=== PATIENT | male | born 1970 | race Caucasian/White ===

== ENCOUNTER 2018-05-03 17:40 | Observation (INO) | payer OTHER ==
--- NOTE | 2018-05-03 18:00 | PDOC ---
Rapid Medical Evaluation Chief Complaint: Blood Sugar Problem Time Seen by Provider: 05/03/18 17:55 Medical Evaluation: 05/03/18 17:58 I have performed a brief in-person evaluation of this patient. The patient presents with a chief complaint of: sent from clinic for BS of 502- Pertinent physical exam findings: well, denies pain, fevers, nausea, dizzy... states feels well I have ordered the following: CBC, CMP, Acetone, UA The patient will proceed to the ED for further evaluation.
[2018-05-03 18:01] VITALS: BMI 20.5
[2018-05-03 18:32] LABS: URINE APPEARANCE CLEAR; URINE BILIRUBIN NEGATIVE (<2.0 mg/dL); URINE COLOR STRAW; URINE GLUCOSE (UA) 3+ (NEGATIVE); URINE KETONE 1+ (NEGATIVE); URINE LEUK ESTERASE NEGATIVE (NEGATIVE); URINE NITRITE NEGATIVE (NEGATIVE); URINE PROTEIN NEGATIVE (NEGATIVE); URINE UROBILINOGEN NEGATIVE mg/dL (0.2-1.0)
[2018-05-03 19:03] LABS: BASO % 0.5 % (0-2.0); EOS % 0.6 % (0-4.5); HEMATOCRIT 46.2 % (35.4-49); HEMOGLOBIN 15.2 GM/dL (11.7-16.9); LYMPH % 22.9 % (8-40); MCH 31.5 pg (25.7-33.7); MCHC 32.9 g/dl (32.0-35.9); MEAN CELL VOLUME 95.7 fl (80-96); MONO % 8.7 % (3.8-10.2); NEUT % 67.3 % (42.8-82.8); PLATELET COUNT 185 K/MM3 (134-434); RBC 4.82 M/mm3 (4.00-5.60); RDW 14.5 % (11.9-15.9); WHITE BLOOD COUNT 6.8 K/mm3 (4.0-10.0)
--- NOTE | 2018-05-03 19:27 | PDOC ---
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 Received 8 units of insulin at the clinic around 10 am and told to go to the hospital for evaluation. Of note, Pt does not have PCP and has not taken his prescribed metformin for over 2 years but has been taking metformin for the last 2 months. Pt has had 2 appointments with [facility] eye clinic for 2 months of blurry vision and left eye watery drainage which has been improving with eye drops. Pt admits to increased frequency of urination at night but all other ROS including denies any N/V/F/C, pain or burning on urination, changes in bowel habits abdominal pain, CP or SOB Past History - Past Medical History Allergies/Adverse Reactions: Allergies Allergy/AdvReac Type Severity Reaction Status Date / Time No Known Allergies Allergy Verified 05/03/18 17:58 Home Medications: Ambulatory Orders Erythromycin 0.5% Eye Ointment [Erythromycin 0.5% Eye Ointment -] 1 applic BID 05/03/18 Propylene Glycol/Peg 400/Pf [Systane Ultra 0.4-0.3% Eye Drp] 1 each OP DAILY metFORMIN HCL [Metformin HCl] 1,000 mg PO BID 05/03/18 - Suicide/Smoking/Psychosocial Hx Smoking History: Current every day smoker Information on smoking cessation initiated: No Review of Systems - Review of Systems Constitutional: No: Chills, Fever HEENTM: Yes: Blurred Vision (2 months) Respiratory: No: Shortness of Breath Cardiac (ROS): No: Chest Pain ABD/GI: No: Constipated, Diarrhea, Nausea, Vomiting : Yes: Frequency (for multiple years). No: Burning, Dysuria Musculoskeletal: No: Back Pain Neurological: No: Headache, Numbness, Paresthesia, Weakness *Physical Exam - Vital Signs Last Vital Signs Temp Pulse Resp BP Pulse Ox 97.9 F 106 H 18 172/107 H 05/03/18 18:00 05/03/18 18:00 05/03/18 18:00 05/03/18 18:00 - Physical Exam General Appearance: Yes: Nourished, Appropriately Dressed. No: Apparent Distress HEENT: positive: EOMI Respiratory/Chest: positive: Lungs Clear, Normal Breath Sounds. negative: Stridor, Wheezing Cardiovascular: positive: Regular Rhythm, Regular Rate (rechecked 94), S1, S2. negative: Edema, JVD, Murmur Vascular Pulses: Dorsalis-Pedis (R): 4+, Doralis-Pedis (L): 4+ Gastrointestinal/Abdominal: positive: Flat, Soft. negative: Pulsatile Mass, Distended, Guarding, Rebound, Tenderness Extremity: positive: Normal Capillary Refill Integumentary: positive: Normal Color, Dry, Warm Neurologic: positive: Fully Oriented, Alert, Normal Mood/Affect, Normal Response , Motor Strength 11/05 ED Treatment Course - LABORATORY CBC & Chemistry Diagram: 05/03/18 18:50 05/03/18 18:50 - ADDITIONAL ORDERS Additional order review: Laboratory Results 05/03/18 18:00 Urine Color Straw Urine Appearance Clear Urine pH 5.0 Ur Specific [place] 1.020 Urine Protein Negative Urine Glucose (UA) 3+ H Urine Ketones 1+ H Urine Blood Negative Urine Nitrite Negative Urine Bilirubin Negative Urine Urobilinogen Negative Ur Leukocyte Esterase Negative 05/03/18 18:50 RBC 4.82 MCV 95.7 MCHC 32.9 RDW 14.5 MPV 10.0 Neutrophils % 67.3 Lymphocytes % 22.9 Monocytes % 8.7 Eosinophils % 0.6 Basophils % 0.5 Medical Decision Making - Medical Decision Making 47 yo male pmh DM with BS noted in the 500s and received 8 units of insulin today. Also, BP elevated. Patient has no complaints 05/03/18 19:48 repeat vitals: 123/72 BP 94 BPM 100% RA BS 389 Acetone positive 2+ Repeat after 2L fluid 1+ positive Will admit to observation *DC/Admit/Observation/Transfer Diagnosis at time of Disposition: Uncontrolled diabetes mellitus Qualifiers: Diabetes mellitus type: type 2 Glycemic state: with hyperglycemia Qualified Code(s): E11.65 - Type 2 diabetes mellitus with hyperglycemia - Discharge Dispostion Condition at time of disposition: Stable Decision to Admit order: Yes - Referrals - Patient Instructions - Post Discharge Activity
[2018-05-03] MEDS ORDERED: SODIUM CHLORIDE 0.9% 1000 ML INFUS.BAG IV ONE (19:39)
--- NOTE | 2018-05-03 19:39 | PDOC ---
Attending Attestation - HPI HPI: 05/03/18 21:26 The patient is a 47 year old male, with a significant past medical history of diabetes and cataracts (recent surgery), who presents to the emergency department with, elevated blood sugar. As per patient, he has not been compliant with medications over the past 2 years and has only been taking his medication (Metformin) over the past 2 months. He was seen at his eye clinic and when his blood glucose level was in the 500s and he was administered insulin. Patient was seen at the clinic on [address] and was advised to report to the ED for further evaluation. He denies any recent fevers, chills, headache or dizziness. He denies any recent nausea, vomit, diarrhea or constipation. He denies any recent chest pain or shortness of breath. He denies any recent dysuria, frequency, urgency or hematuria. Allergies: NKDA - Physicial Exam PE: 05/03/18 21:31 +Constitutional: Pale. Awake, alert, oriented. No acute distress. Head: Normocephalic. Atraumatic +Eyes: Mildly injected sclera. Recent cataract surgery. ENT: Mucous membranes are moist and intact. Posterior pharynx without exudates or erythema. Uvula midline. Neck: Supple. Full ROM. No lymphadenopathy. +Cardiovascular: Tachycardic. S1, S2 regular. Distal pulses are 2+ and symmetric. Pulmonary/Chest: No evidence of respiratory distress. Clear to auscultation bilaterally No wheezing, rales or rhonchi. Abdominal: Soft and non-distended. There is no tenderness. No rebound, guarding or rigidity. No organomegaly. No palpable masses. Good bowel sounds. Back: No CVA tenderness. Musculoskeletal: No edema. No cyanosis. No clubbing. Full range of motion in all extremities. No calf tenderness. Radial/pedal pulses are intact and 2+ bilaterally Skin: Skin is warm and dry. No petechiae. No purpura. Neurological: Alert and oriented to person, place, and time. Cranial nerves II -XII are grossly intact. Normal speech. Strength is grossly symmetric. No sensory deficits. Psychiatric: Good eye contact. Normal interaction, affect and behavior. <Ivis Smith - Last Filed: 05/03/18 21:26> - Resident Resident Name: Jorge Amor - ED Attending Attestation I have performed the following: I have examined & evaluated the patient, The case was reviewed & discussed with the resident, I agree w/resident's findings & plan, Exceptions are as noted - Medical Decision Making 05/03/18 19:38 I, Dr. Nakia Brown, DO, attest that this document has been prepared under my direction and personally reviewed by me in its entirety. I further attest, that it accurately reflects all work, treatment, procedures and medical decision -making performed by me. 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 <Ivis Smith - Last Filed: 05/03/18 21:26>
[2018-05-03 19:45] LABS: ALBUMIN 3.9 g/dl (3.4-5.0); ALK PHOS 104 U/L (45-117); ANION GAP 12 MMOL/L (8-16); BILIRUBIN,TOTAL 0.4 mg/dL (0.2-1); BLOOD UREA NITROGEN 12 mg/dL (7-18); CALCIUM 8.8 mg/dL (8.5-10.1); CHLORIDE 96 mmol/L (98-107); CO2 24 mmol/L (21-32); CREATININE 0.6 mg/dL (0.55-1.3); POTASSIUM 4.4 mmol/L (3.5-5.1); SGOT/AST 10 U/L (15-37); SGPT/ALT 28 U/L (13-61); SODIUM 133 mmol/L (136-145); TOT PROT 6.9 g/dl (6.4-8.2)
[2018-05-03 19:46] LABS: GLUCOSE,RANDOM 389 mg/dL (74-106)
[2018-05-03] MEDS ORDERED: SODIUM CHLORIDE 1,000 ML IV STA (20:43)
[2018-05-04] MEDS ORDERED: SODIUM CHLORIDE 0.9% 1000 ML INFUS.BAG IV ONE (00:14)
[2018-05-04] MEDS ORDERED: INSULIN (NOVOLOG) ASPART 100 UNITS/ML 10ML VIAL ONE (00:29)
--- NOTE | 2018-05-04 00:44 | HP ---
CHIEF COMPLAINT: PCP: HISTORY OF PRESENT ILLNESS: ER course was notable for: (1) (2) (3) Recent Travel: PAST MEDICAL HISTORY: PAST SURGICAL HISTORY: Social History: Smoking: Alcohol: Drugs: Family History: Allergies No Known Allergies Allergy (Verified 05/03/18 17:58) HOME MEDICATIONS: Home Medications Medication Instructions Recorded Erythromycin 0.5% Eye Ointment 1 applic BID 05/03/18 [Erythromycin 0.5% Eye Ointment -] Propylene Glycol/Peg 400/Pf 1 each OP DAILY 05/03/18 [Systane Ultra 0.4-0.3% Eye Drp] metFORMIN HCL [Metformin HCl] 1,000 mg PO BID 05/03/18 REVIEW OF SYSTEMS CONSTITUTIONAL: Absent: fever, chills, diaphoresis, generalized weakness, malaise, loss of appetite, weight change HEENT: Absent: rhinorrhea, nasal congestion, throat pain, throat swelling, difficulty swallowing, mouth swelling, ear pain, eye pain, visual changes CARDIOVASCULAR: Absent: chest pain, syncope, palpitations, irregular heart rate, lightheadedness , peripheral edema RESPIRATORY: Absent: cough, shortness of breath, dyspnea with exertion, orthopnea, wheezing, stridor, hemoptysis GASTROINTESTINAL: Absent: abdominal pain, abdominal distension, nausea, vomiting, diarrhea, constipation, melena, hematochezia GENITOURINARY: Absent: dysuria, frequency, urgency, hesitancy, hematuria, flank pain, genital pain MUSCULOSKELETAL: Absent: myalgia, arthralgia, joint swelling, back pain, neck pain SKIN: Absent: rash, itching, pallor HEMATOLOGIC/IMMUNOLOGIC: Absent: easy bleeding, easy bruising, lymphadenopathy, frequent infections ENDOCRINE: Absent: unexplained weight gain, unexplained weight loss, heat intolerance, cold intolerance NEUROLOGIC: Absent: headache, focal weakness or paresthesias, dizziness, unsteady gait, seizure, mental status changes, bladder or bowel incontinence PSYCHIATRIC: Absent: anxiety, depression, suicidal or homicidal ideation, hallucinations. PHYSICAL EXAMINATION Vital Signs - 24 hr 05/03/18 18:00 Temperature 97.9 F Pulse Rate 106 H Respiratory 18 Rate Blood Pressure 172/107 H GENERAL: Awake, alert, and fully oriented, in no acute distress. HEAD: Normal with no signs of trauma. EYES: Pupils equal, round and reactive to light, extraocular movements intact, sclera anicteric, conjunctiva clear. No lid lag. EARS, NOSE, THROAT: Ears normal, nares patent, oropharynx clear without exudates. Moist mucous membranes. NECK: Normal range of motion, supple without lymphadenopathy, JVD, or masses. LUNGS: Breath sounds equal, clear to auscultation bilaterally. No wheezes, and no crackles. No accessory muscle use. HEART: Regular rate and rhythm, normal S1 and S2 without murmur, rub or gallop. ABDOMEN: Soft, nontender, not distended, normoactive bowel sounds, no guarding, no rebound, no masses. No hepatomegaly or splenomegaly. MUSCULOSKELETAL: Normal range of motion at all joints. No bony deformities or tenderness. No CVA tenderness. UPPER EXTREMITIES: 2+ pulses, warm, well-perfused. No cyanosis. No clubbing. No peripheral edema. LOWER EXTREMITIES: 2+ pulses, warm, well-perfused. No calf tenderness. No peripheral edema. NEUROLOGICAL: Cranial nerves II-XII intact. Normal speech. Normal gait. PSYCHIATRIC: Cooperative. Good eye contact. Appropriate mood and affect. SKIN: Warm, dry, normal turgor, no rashes or lesions noted, normal capillary refill. Laboratory Results - last 24 hr 05/03/18 05/03/18 05/03/18 18:00 18:50 18:50 WBC 6.8 RBC 4.82 Hgb 15.2 Hct 46.2 MCV 95.7 MCH 31.5 MCHC 32.9 RDW 14.5 Plt Count 185 MPV 10.0 Absolute Neuts (auto) 4.6 Neutrophils % 67.3 Lymphocytes % 22.9 Monocytes % 8.7 Eosinophils % 0.6 Basophils % 0.5 Nucleated RBC % 0 Sodium 133 L Potassium 4.4 Chloride 96 L Carbon Dioxide 24 Anion Gap 12 BUN 12 Creatinine 0.6 Creat Clearance w eGFR > 60 POC Glucometer Random Glucose 389 H* Calcium 8.8 Total Bilirubin 0.4 AST 10 L ALT 28 Alkaline Phosphatase 104 Total Protein 6.9 Albumin 3.9 Urine Color Straw Urine Appearance Clear Urine pH 5.0 Ur Specific [place] 1.020 Urine Protein Negative Urine Glucose (UA) 3+ H Urine Ketones 1+ H Urine Blood Negative Urine Nitrite Negative Urine Bilirubin Negative Urine Urobilinogen Negative Ur Leukocyte Esterase Negative Acetone, Qual 05/03/18 05/03/18 05/04/18 18:50 22:55 00:16 WBC RBC Hgb Hct MCV MCH MCHC RDW Plt Count MPV Absolute Neuts (auto) Neutrophils % Lymphocytes % Monocytes % Eosinophils % Basophils % Nucleated RBC % Sodium Potassium Chloride Carbon Dioxide Anion Gap BUN Creatinine Creat Clearance w eGFR POC Glucometer [phone] Random Glucose Calcium Total Bilirubin AST ALT Alkaline Phosphatase Total Protein Albumin Urine Color Urine Appearance Urine pH Ur Specific [place] Urine Protein Urine Glucose (UA) Urine Ketones Urine Blood Urine Nitrite Urine Bilirubin Urine Urobilinogen Ur Leukocyte Esterase Acetone, Qual Positive moderate 2+ Positive small 1+ ASSESSMENT/PLAN:
[2018-05-04] MEDS ORDERED: amLODIPine BESYLATE 5 MG TABLET (FP) PO ONE (01:32)
--- NOTE | 2018-05-04 01:44 | HP ---
CHIEF COMPLAINT: Elevated blood glucose PCP: HISTORY OF PRESENT ILLNESS: Patient is a 47 year old male with history of poorly controlled Diabetes Mellitus presents from [facility] with complaint of elevated blood glucose. Patient states he took his metformin 1000mg yesterday, however admits periods of time not taking Metformin, and is reluctant to discuss the gaps in his medication compliance. He has never taken insulin. Admits occasionally checking his fingerstick blood sugar in middle of the day with numbers ranging in 300-400. 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 He has not seen telemetry nurse in the past. Currently he denies falls, loss of consciousness, fevers, chills, shortness of breath, cough, chest pain, palpitations, abdominal pain, nausea, vomiting, diarrhea, constipation. ER course was notable for: (1) Blood glucose 369 (2) 3L IV normal saline PAST MEDICAL HISTORY: diabetes mellitus, hypertension PAST SURGICAL HISTORY: denies Social History: Smoking: admits smoking about half pack per day for past 20 years Alcohol: admits 2-3 beers daily Drugs: denies Family History: Mother: HTN Father: DM Allergies NKDA No Known Allergies Allergy (Verified 05/03/18 17:58) HOME MEDICATIONS: Home Medications Medication Instructions Recorded Erythromycin 0.5% Eye Ointment 1 applic BID 05/03/18 [Erythromycin 0.5% Eye Ointment -] Propylene Glycol/Peg 400/Pf 1 each OP DAILY 05/03/18 [Systane Ultra 0.4-0.3% Eye Drp] metFORMIN HCL [Metformin HCl] 1,000 mg PO BID 05/03/18 REVIEW OF SYSTEMS As per HPI PHYSICAL EXAMINATION Vital Signs - 24 hr 05/03/18 05/03/18 18:00 23:58 Temperature 97.9 F 98.5 F Pulse Rate 106 H Pulse Rate [ 112 H Apical] Respiratory 18 18 Rate Blood Pressure 172/107 H Blood Pressure 142/88 [Left Arm] O2 Sat by Pulse 99 Oximetry (%) GENERAL: Awake, alert, and fully oriented, in no acute distress. HEAD: Normocephalic, atraumatic. EYES: Pupils equal, round and reactive to light, extraocular movements intact without nystagmus b/l. Sclera anicteric. Left eye conjunctival injection noted. EARS, NOSE, THROAT: Oropharynx clear without exudates, erythema, or lesions. Moist mucous membranes. NECK: Normal range of motion, supple without lymphadenopathy, or thyromegaly. LUNGS: Breath sounds equal, clear to auscultation bilaterally. No wheezes, and no crackles. No accessory muscle use. HEART: Regular rate and rhythm, normal S1 and S2 without murmur, rub or gallop. ABDOMEN: Soft, nontender, not distended, normoactive bowel sounds, no guarding, no rebound, no masses. No hepatomegaly or splenomegaly. MUSCULOSKELETAL: Normal range of motion at all joints. No bony deformities or tenderness. Strength 5/5 b/l upper and lower extremities. UPPER EXTREMITIES: 2+ radial pulses b/l. warm, well-perfused. LOWER EXTREMITIES: 2+ dorsalis pedis pulses b/l, warm, well-perfused. No calf tenderness. No peripheral edema. NEUROLOGICAL: Cranial nerves II-XII intact. Normal speech. Normal gait. Sensation intact b/l upper and lower extremities. PSYCHIATRIC: Cooperative. Good eye contact. Appropriate mood and affect upon my encounter today. SKIN: Warm, dry. Cracked dry skin between toes without open wounds or lesions. Laboratory Results - last 24 hr 05/03/18 05/03/18 05/03/18 18:00 18:50 18:50 WBC 6.8 RBC 4.82 Hgb 15.2 Hct 46.2 MCV 95.7 MCH 31.5 MCHC 32.9 RDW 14.5 Plt Count 185 MPV 10.0 Absolute Neuts (auto) 4.6 Neutrophils % 67.3 Lymphocytes % 22.9 Monocytes % 8.7 Eosinophils % 0.6 Basophils % 0.5 Nucleated RBC % 0 Sodium 133 L Potassium 4.4 Chloride 96 L Carbon Dioxide 24 Anion Gap 12 BUN 12 Creatinine 0.6 Creat Clearance w eGFR > 60 POC Glucometer Random Glucose 389 H* Calcium 8.8 Total Bilirubin 0.4 AST 10 L ALT 28 Alkaline Phosphatase 104 Total Protein 6.9 Albumin 3.9 Urine Color Straw Urine Appearance Clear Urine pH 5.0 Ur Specific [place] 1.020 Urine Protein Negative Urine Glucose (UA) 3+ H Urine Ketones 1+ H Urine Blood Negative Urine Nitrite Negative Urine Bilirubin Negative Urine Urobilinogen Negative Ur Leukocyte Esterase Negative Acetone, Qual 05/03/18 05/03/18 05/04/18 18:50 22:55 00:16 WBC RBC Hgb Hct MCV MCH MCHC RDW Plt Count MPV Absolute Neuts (auto) Neutrophils % Lymphocytes % Monocytes % Eosinophils % Basophils % Nucleated RBC % Sodium Potassium Chloride Carbon Dioxide Anion Gap BUN Creatinine Creat Clearance w eGFR POC Glucometer [phone] Random Glucose Calcium Total Bilirubin AST ALT Alkaline Phosphatase Total Protein Albumin Urine Color Urine Appearance Urine pH Ur Specific [place] Urine Protein Urine Glucose (UA) Urine Ketones Urine Blood Urine Nitrite Urine Bilirubin Urine Urobilinogen Ur Leukocyte Esterase Acetone, Qual Positive moderate 2+ Positive small 1+ ASSESSMENT/PLAN: Patient is a 47 year old male with history of poorly controlled Diabetes Mellitus presents from [facility] with complaint of elevated blood glucose. Hyperglycemia -Patient received 8 units insulin in clinic prior to arrival at [facility] ED. -Begin Levemir 5 units HS -Insulin sliding scale ACHS -BGM ACHS -F/U lipid panel, A1c, TSH -Discussed importance of daily fingerstick blood glucose monitoring Hypertension -Begin Lisinporil 5mg PO daily -Follow vital signs Hyperlipidemia -Begin atorvastatin 40mg PO daily -F/U lipid panel FEN -No IV fluids. Encourage judicious oral intake -Follow CMP -Diabetic diet Prophylaxis -Heparin 5000u subq TID Disposition -Observe in medical surgical floor Visit type - Emergency Visit Emergency Visit: Yes ED Registration Date: 05/04/18 Care time: The patient presented to the Emergency Department on the above date and was hospitalized for further evaluation of their emergent condition. - New Patient This patient is new to me today: Yes Date on this admission: 05/04/18 - Critical Care Critical Care patient: No
[2018-05-04] MEDS ORDERED: amLODIPine BESYLATE 5 MG TABLET (FP) ONE (02:22)
[2018-05-04] MEDS ORDERED: INSULIN (LEVEMIR) 100 UNITS/ML UNITS SQ STA (03:00)
--- NOTE | 2018-05-04 03:00 | PN ---
Teaching Attending Note Name of Resident: Verna Camacho ATTENDING PHYSICIAN STATEMENT I saw and evaluated the patient. I reviewed the resident's note and discussed the case with the resident. I agree with the resident's findings and plan as documented. SUBJECTIVE: Seen and examined with resident; please refer to their note for further information. In summary this is a 47 y/o gentleman with a h/o DM on metformin at home; occasionally forgets to take it. He is insulin naieve. He was at his eye doctor's office when his sugar was checked and found to be >500. He was given insulin but was still very high >350 so he came to the hospital on direction from his MD. He is doing well with no acute complaints. Sugar here still in high 300-range. He will likely need to be started on insulin and monitored on the medicine service overnight. As stated, he feels well. He checks sugar 1x/day around noon and is usually in the 300-400 range. PMH and PSH per chart FH asked and noncontributory Denies EtOH and drug abuse OBJECTIVE: VSS, reviewed labs NAD, AAO, resting in chair in holding area RRR s1/2 no mgr No rashes or skin breakdown Lung exam nonfocal with sym exp NT ND +BS CN2-12 wnl, no fnd ASSESSMENT AND PLAN: Mr. Mcknight is a 47 y/o HM with a history of uncontrolled DM presenting for glucose >500 at his optho office. No anion gap/DKA. He will need him DM regimine optimized and started on long acting insulin 1) Diabetes Mellitus II -Evidenced by PMH and his fsg. Check A1c -As he is consistently above 300 at home, given his degree of uncontrolled DM will likely be requiring insulin. Starting him on long acting (levemir here, but can convert to lantus as OP) 5 units qHS and informing him he needs to change his fsg check to qAM at the very minimum. He is to continue his metformin and followup closely with PCP -Check his lipids, TSH. Calculate ASCVD risk and see if he would benefit from statin usage as outpatient; start him on appropriate intensity statin, then. -Will need podiatry, continued optho followups, urine microalbumin/Cr ratio done as outpatient. 2) +Acetone in urine -Not in DKA (no AG+, no acidosis, asx); likely from prolonged severe hyperglycemia -Recheck as outpatient. 3) HTN, uncontrolled -Hypertensive to 170s on admission; no documented meds -Start him on Lisinopril 5mg PO QD and titrate up as needed. If persistently high on this would be reasonable to tirate up and consider second agent given the degree of his lack of control. Would consider amlodipine for this second agent. FENA -Hydrated in the ER, can do PO now -monitor/replace PRN -Diabetic Diet -As tolerated Full Code, anticipate DC less than 24 hrs
[2018-05-04] MEDS ORDERED: HEPARIN NA (PORCINE) 5,000 UNITS/ML 1ML VIAL SQ SCH (06:00)
[2018-05-04] MEDS ORDERED: HEPARIN NA (PORCINE) 5,000 UNITS/ML 1ML VIAL ONE (06:28)
[2018-05-04 06:32] LABS: HEMATOCRIT 42.9 % (35.4-49); HEMOGLOBIN 13.9 GM/dL (11.7-16.9); MCHC 32.4 g/dl (32.0-35.9); MEAN CELL VOLUME 95.7 fl (80-96); MEAN PLT VOLUME 9.9 fl (7.5-11.1); PLATELET COUNT 168 K/MM3 (134-434); RBC 4.48 M/mm3 (4.00-5.60); RDW 14.1 % (11.9-15.9); WHITE BLOOD COUNT 6.4 K/mm3 (4.0-10.0)
[2018-05-04 06:48] VITALS: BP 112/82; PULSE 89; TEMP 98.2
[2018-05-04] MEDS ORDERED: INSULIN SLIDING SCALE (NOVOLOG) 1 VIAL SQ SCH (07:00)
[2018-05-04 07:24] LABS: CHOLESTEROL 153 mg/dL (50-200); HDL CHOLESTEROL 57 mg/dL (40-60); TRIGLYCERIDES 104 mg/dL (0-150)
[2018-05-04 07:33] LABS: ALBUMIN 3.3 g/dl (3.4-5.0); ALK PHOS 85 U/L (45-117); ANION GAP 9 MMOL/L (8-16); BILIRUBIN,TOTAL 0.5 mg/dL (0.2-1); BLOOD UREA NITROGEN 9 mg/dL (7-18); CHLORIDE 106 mmol/L (98-107); CO2 22 mmol/L (21-32); CREATININE 0.3 mg/dL (0.55-1.3); GLUCOSE,RANDOM 97 mg/dL (74-106); MAGNESIUM 1.9 mg/dL (1.8-2.4); PHOSPHOROUS 2.5 mg/dL (2.5-4.9); POTASSIUM 3.7 mmol/L (3.5-5.1); SGOT/AST 12 U/L (15-37); SGPT/ALT 24 U/L (13-61); SODIUM 137 mmol/L (136-145)
[2018-05-04] MEDS ORDERED: LISINOPRIL 5 MG TABLET (FP) PO SCH (10:00)
--- NOTE | 2018-05-04 13:34 | PN ---
Teaching Attending Note Name of Resident: Sagar Hernandez ATTENDING PHYSICIAN STATEMENT I reviewed the resident's note and discussed the case with the resident. I agree with the resident's findings and plan as documented. SUBJECTIVE:pt signed out AMA prior to my ability to evaluate and psychosocial rehabilitation counselor the patient. was counseled by residents. scripts were sent to pharmacy.
--- NOTE | 2018-05-04 14:48 | EKG ---
Test Reason : Blood Pressure : / mmHG Vent. Rate : 094 BPM Atrial Rate : 094 BPM P-R Int : 142 ms QRS Dur : 084 ms QT Int : 360 ms P-R-T Axes : 059 097 066 degrees QTc Int : 450 ms NORMAL SINUS RHYTHM RIGHTWARD AXIS BORDERLINE ECG NO PREVIOUS ECGS AVAILABLE Confirmed by MARIA JETER, LIAM ([id number]) on 05/04/2018 2:48:41 PM Referred By: Confirmed By:LIAM SIFUENTES MD
--- NOTE | 2018-05-04 17:33 | DS ---
Physical Exam: SUBJECTIVE: Signed out Against Medical Advice. OBJECTIVE: Vital Signs Period Temp Pulse Resp BP Sys/Son Pulse Ox Last 24 Hr 97.9 F-98.5 F 89-112 12-18 112-172/82-107 99-99 PHYSICAL EXAM Pt signed out AMA. Pt left before able to perform physical exam. LABS Laboratory Results - last 24 hr 05/03/18 05/03/18 05/03/18 18:00 18:50 18:50 WBC 6.8 RBC 4.82 Hgb 15.2 Hct 46.2 MCV 95.7 MCH 31.5 MCHC 32.9 RDW 14.5 Plt Count 185 MPV 10.0 Absolute Neuts (auto) 4.6 Neutrophils % 67.3 Lymphocytes % 22.9 Monocytes % 8.7 Eosinophils % 0.6 Basophils % 0.5 Nucleated RBC % 0 Sodium 133 L Potassium 4.4 Chloride 96 L Carbon Dioxide 24 Anion Gap 12 BUN 12 Creatinine 0.6 Creat Clearance w eGFR > 60 POC Glucometer Random Glucose 389 H* Hemoglobin A1c % Calcium 8.8 Phosphorus Magnesium Total Bilirubin 0.4 AST 10 L ALT 28 Alkaline Phosphatase 104 Total Protein 6.9 Albumin 3.9 Triglycerides Cholesterol Total LDL Cholesterol HDL Cholesterol TSH Urine Color Straw Urine Appearance Clear Urine pH 5.0 Ur Specific [place] 1.020 Urine Protein Negative Urine Glucose (UA) 3+ H Urine Ketones 1+ H Urine Blood Negative Urine Nitrite Negative Urine Bilirubin Negative Urine Urobilinogen Negative Ur Leukocyte Esterase Negative Acetone, Qual 05/03/18 05/03/18 05/04/18 18:50 22:55 00:16 WBC RBC Hgb Hct MCV MCH MCHC RDW Plt Count MPV Absolute Neuts (auto) Neutrophils % Lymphocytes % Monocytes % Eosinophils % Basophils % Nucleated RBC % Sodium Potassium Chloride Carbon Dioxide Anion Gap BUN Creatinine Creat Clearance w eGFR POC Glucometer [phone] Random Glucose Hemoglobin A1c % Calcium Phosphorus Magnesium Total Bilirubin AST ALT Alkaline Phosphatase Total Protein Albumin Triglycerides Cholesterol Total LDL Cholesterol HDL Cholesterol TSH Urine Color Urine Appearance Urine pH Ur Specific [place] Urine Protein Urine Glucose (UA) Urine Ketones Urine Blood Urine Nitrite Urine Bilirubin Urine Urobilinogen Ur Leukocyte Esterase Acetone, Qual Positive moderate 2+ Positive small 1+ 05/04/18 05/04/18 05/04/18 04:06 04:30 06:15 WBC 6.4 RBC 4.48 Hgb 13.9 Hct 42.9 MCV 95.7 MCH 31.0 MCHC 32.4 RDW 14.1 Plt Count 168 MPV 9.9 Absolute Neuts (auto) Neutrophils % Lymphocytes % Monocytes % Eosinophils % Basophils % Nucleated RBC % Sodium Potassium Chloride Carbon Dioxide Anion Gap BUN Creatinine Creat Clearance w eGFR POC Glucometer [phone] Random Glucose Hemoglobin A1c % Calcium Phosphorus Magnesium Total Bilirubin AST ALT Alkaline Phosphatase Total Protein Albumin Triglycerides Cholesterol Total LDL Cholesterol HDL Cholesterol TSH Urine Color Urine Appearance Urine pH Ur Specific [place] Urine Protein Urine Glucose (UA) Urine Ketones Urine Blood Urine Nitrite Urine Bilirubin Urine Urobilinogen Ur Leukocyte Esterase Acetone, Qual 05/04/18 05/04/18 05/04/18 06:15 06:15 06:15 WBC RBC Hgb Hct MCV MCH MCHC RDW Plt Count MPV Absolute Neuts (auto) Neutrophils % Lymphocytes % Monocytes % Eosinophils % Basophils % Nucleated RBC % Sodium 137 Potassium 3.7 Chloride 106 Carbon Dioxide 22 Anion Gap 9 BUN 9 Creatinine 0.3 L Creat Clearance w eGFR > 60 POC Glucometer Random Glucose 97 Hemoglobin A1c % 13.7 H Calcium 8.0 L Phosphorus 2.5 Magnesium 1.9 Total Bilirubin 0.5 AST 12 L ALT 24 Alkaline Phosphatase 85 Total Protein 6.0 L Albumin 3.3 L Triglycerides 104 Cholesterol 153 Total LDL Cholesterol 86 HDL Cholesterol 57 TSH 1.87 Urine Color Urine Appearance Urine pH Ur Specific [place] Urine Protein Urine Glucose (UA) Urine Ketones Urine Blood Urine Nitrite Urine Bilirubin Urine Urobilinogen Ur Leukocyte Esterase Acetone, Qual 05/04/18 06:35 WBC RBC Hgb Hct MCV MCH MCHC RDW Plt Count MPV Absolute Neuts (auto) Neutrophils % Lymphocytes % Monocytes % Eosinophils % Basophils % Nucleated RBC % Sodium Potassium Chloride Carbon Dioxide Anion Gap BUN Creatinine Creat Clearance w eGFR POC Glucometer [phone] Random Glucose Hemoglobin A1c % Calcium Phosphorus Magnesium Total Bilirubin AST ALT Alkaline Phosphatase Total Protein Albumin Triglycerides Cholesterol Total LDL Cholesterol HDL Cholesterol TSH Urine Color Urine Appearance Urine pH Ur Specific [place] Urine Protein Urine Glucose (UA) Urine Ketones Urine Blood Urine Nitrite Urine Bilirubin Urine Urobilinogen Ur Leukocyte Esterase Acetone, Qual HOSPITAL COURSE: Date of Admission:05/04/18 Pt was referred to our emergency department yesterday, 05/03/18, after receiving a BGM of >500 at an eye clinic earlier that day. Pt's BGM in ED was 389. Pt given 5 U SQ Insulin. Repeat BGM was 97. Pt endorsed that he received 8 Units of insulin at the eye clinic before he came to our ED. While in ED, pt' s acetone was positive 2+. Risks of signing out AMA was explained to pt by hospitalist teaching team. Pt signed out AMA. Date of Discharge: 05/04/18 Minutes to complete discharge: 35 Discharge Summary Reason For Visit: UNCONTROLLED DIABETES MELLITUS Condition: Stable - Instructions Diet, Activity, Other Instructions: You were seen in the ED today for elevated blood glucose. Levemir 5 units was prescribed to you. Please follow up with your PCP. If you experience symptoms of chest pain, sob, or weakness come to emergency room immediately. Disposition: AGAINST MEDICAL ADVICE - Home Medications Comprehensive Discharge Medication List: Ambulatory Orders Erythromycin 0.5% Eye Ointment [Erythromycin 0.5% Eye Ointment -] 1 applic BID 05/03/18 Propylene Glycol/Peg 400/Pf [Systane Ultra 0.4-0.3% Eye Drp] 1 each OP DAILY metFORMIN HCL [Metformin HCl] 1,000 mg PO BID 05/03/18 Insulin Detemir [Levemir Flextouch] 5 unit SQ HS #1 insuln.pen 05/04/18 Miscellaneous Medical Supply [Glucometer Test Strips #50] 1 each SQ ASDIR #1 box 05/04/18 Miscellaneous Medical Supply [Lancets] 1 each SQ ASDIR #1 box 05/04/18 This patient is new to me today: Yes Date on this admission: 05/04/18 Emergency Visit: Yes ED Registration Date: 05/04/18 Care time: The patient presented to the Emergency Department on the above date and was hospitalized for further evaluation of their emergent condition. Critical Care patient: No - Discharge Referral Referred to [facility] Med P.C.: No
[2018-05-04] MEDS ORDERED: ATORVASTATIN CA 40 MG TABLET (FP) PO SCH (22:00)
[2018-05-04] MEDS ORDERED: INSULIN (LEVEMIR) 100 UNITS/ML UNITS SQ SCH ×2 (22:00)
== END 2018-05-04 07:37 | disposition left against medical advice (07) ==
LOC: JER 17:40 → JERBED 05-04 00:17 → UNDOADMOB 05-04 01:51 → JERBED 05-04 01:51
PROVIDERS: ADMIT Internal Medicine; ATTEND Internal Medicine
PROC: 3E0337Z Introduction of Electrolytic and Water Balance Substance into Peripheral Vein, Percutaneous Approach (ICD-10-PCS; principal; 2018-05-04)
PROC: 3E013VG Introduction of Insulin into Subcutaneous Tissue, Percutaneous Approach (ICD-10-PCS; 2018-05-04)
PROC: 3E013GC Introduction of Other Therapeutic Substance into Subcutaneous Tissue, Percutaneous Approach (ICD-10-PCS; 2018-05-04)
DX: E11.65 Type 2 diabetes mellitus with hyperglycemia (principal); I10 Essential (primary) hypertension; E78.5 Hyperlipidemia, unspecified; F17.210 Nicotine dependence, cigarettes, uncomplicated; R82.4 Acetonuria; Z79.84 Long term (current) use of oral hypoglycemic drugs; Z91.14 Patient's other noncompliance with medication regimen
CPT/HCPCS: 36415; 71046-TC-FY; 80053; 80061; 81003; 82009; 82962; 83036; 83721; 83735; 84100; 84443; 85025; 85027; 93005; 93010; 96360; 96372; 99285-25; G0378; J1644; J7030

== ENCOUNTER 2021-07-30 14:00 | Inpatient (IN) | payer OTHER ==
[2021-07-30 16:53] LABS: INR 0.96 (0.83-1.09)
[2021-07-30 16:55] LABS: BASO % 0.1 % (0-2.0); HEMATOCRIT 37.6 % (35.4-49); HEMOGLOBIN 12.4 GM/dL (11.7-16.9); LYMPH % 6.2 % (8-40); MCH 30.5 pg (25.7-33.7); MEAN CELL VOLUME 92.5 fl (80-96); MEAN PLT VOLUME 10.3 fl (7.5-11.1); MONO % 5.6 % (3.8-10.2); NEUT % 88.1 % (42.8-82.8); PLATELET COUNT 221 10^3/uL (134-434); RBC 4.07 M/mm3 (4.00-5.60); RDW 15.6 % (11.9-15.9); WHITE BLOOD COUNT 13.1 K/mm3 (4.0-10.0)
[2021-07-30 16:56] LABS: ACTIVATED PTT 34.6 SECONDS (25.2-36.5)
[2021-07-30 17:02] LABS: CHLORIDE 114 mmol/L (98-107); SODIUM 142 mmol/L (136-145)
[2021-07-30 17:04] LABS: ALBUMIN 3.6 g/dl (3.4-5.0); ANION GAP 6 MMOL/L (8-16); BLOOD UREA NITROGEN 38.2 mg/dL (7-18); CO2 22 mmol/L (21-32); GLUCOSE,RANDOM 95 mg/dL (74-106); MAGNESIUM 2.8 mg/dL (1.8-2.4)
[2021-07-30 17:07] LABS: CREATININE 1.6 mg/dL (0.55-1.3); SGOT/AST 18 U/L (15-37)
[2021-07-30 17:08] LABS: SGPT/ALT 28 U/L (13-61)
[2021-07-30 17:09] LABS: BILIRUBIN,TOTAL 0.4 mg/dL (0.2-1); TOT PROT 6.8 g/dl (6.4-8.2)
[2021-07-30 17:10] LABS: ALK PHOS 142 U/L (45-117)
[2021-07-30] MEDS ORDERED: LORazepam 2 MG/ML SDV VIAL IVPUSH ONE ×4 (17:24→19:05)
[2021-07-30] MEDS ORDERED: LORazepam 2 MG/ML SDV VIAL IM ONE (17:40)
[2021-07-30 18:49] LABS: VENOUS BASE EXCESS -6.9 mmol/L (-2-2); VENOUS O2 SATURATION 16.4 % (70-80); VENOUS PCO2 47.1 mmHg (38-52); VENOUS PH 7.251 (7.310-7.410)
[2021-07-30] MEDS ORDERED: SODIUM CHLORIDE 1,000 ML IV STA (18:49)
[2021-07-30] MEDS ORDERED: VANCOMYCIN 1 GM in D5W (PRE-DOCKED) 1,000 MG/250 ML IVPB ONE (18:52)
[2021-07-30] MEDS ORDERED: CEFTRIAXONE 2 GM-D5W BAG 2 GM/50 ML BAG IVPB ONE (18:52)
[2021-07-30] MEDS ORDERED: ACYCLOVIR INJECTION 650 MG in DEXTROSE 5%-WATER - 100 ML IVPB ONE (18:54)
[2021-07-30] MEDS ORDERED: VANCOMYCIN 1 GRAM (PRE-DOCKED) 1,000 MG/250 ML BAG IVPB ONE (20:20)
[2021-07-30] MEDS ORDERED: CEFTRIAXONE 2 GM/100 ML BAG IVPB ONE (20:20)
[2021-07-30 22:51] LABS: EPI CELLS 4 /uL (0-25.1); HYALINE CASTS 1 /uL (0-3.1); URINE APPEARANCE CLEAR; URINE BACTERIA 2 /uL (0-1359); URINE BILIRUBIN NEGATIVE (NEGATIVE); URINE COLOR YELLOW; URINE GLUCOSE (UA) NEGATIVE (NEGATIVE); URINE KETONE NEGATIVE (NEGATIVE); URINE LEUK ESTERASE NEGATIVE (NEGATIVE); URINE NITRITE NEGATIVE (NEGATIVE); URINE PROTEIN 1+ (NEGATIVE); URINE RBC 19 /uL (0-23.9); URINE UROBILINOGEN 0.2 mg/dL (0.2-1.0); URINE WBC 7 /uL (0-25.8)
[2021-07-31] MEDS ORDERED: LORazepam 2 MG/ML SDV VIAL IVPUSH ONE ×3 (02:39→21:40)
[2021-07-31] MEDS ORDERED: HEPARIN NA (PORCINE) 5,000 UNITS/ML 1ML VIAL SQ SCH (06:00)
[2021-07-31] MEDS ORDERED: SODIUM CHLORIDE 1,000 ML IV SCH (07:00)
[2021-07-31] MEDS ORDERED: DEXTROSE 5%-WATER - 50 ML IVPB ONE (09:23)
[2021-07-31] MEDS ORDERED: cefTRIAXone SODIUM 1 GM VIAL ONE (09:23)
[2021-07-31 09:37] LABS: HEMATOCRIT 35.6 % (35.4-49); HEMOGLOBIN 11.6 GM/dL (11.7-16.9); MCH 30.6 pg (25.7-33.7); MCHC 32.5 g/dl (32.0-35.9); MEAN PLT VOLUME 10.1 fl (7.5-11.1); PLATELET COUNT 191 10^3/uL (134-434); RBC 3.79 M/mm3 (4.00-5.60); RDW 15.2 % (11.9-15.9); WHITE BLOOD COUNT 12.1 K/mm3 (4.0-10.0)
[2021-07-31 09:59] LABS: CALCIUM 9.1 mg/dL (8.5-10.1)
[2021-07-31 10:00] LABS: ALBUMIN 3.6 g/dl (3.4-5.0); BLOOD UREA NITROGEN 32.6 mg/dL (7-18)
[2021-07-31] MEDS ORDERED: CEFTRIAXONE 1 GM in DEXTROSE 5%-WATER - 50 ML IVPB SCH (10:00)
[2021-07-31 10:01] LABS: MAGNESIUM 2.6 mg/dL (1.8-2.4)
[2021-07-31 10:03] LABS: CREATININE 1.4 mg/dL (0.55-1.3); PHOSPHOROUS 3.2 mg/dL (2.5-4.9)
[2021-07-31 10:04] LABS: BILIRUBIN,TOTAL 0.5 mg/dL (0.2-1)
[2021-07-31 10:05] LABS: TOT PROT 6.5 g/dl (6.4-8.2)
[2021-07-31] MEDS ORDERED: DEXTROSE 5%-0.45% SALINE 1,000 ML IV SCH (11:15)
[2021-07-31] MEDS ORDERED: THIAMINE HCL 200 MG/2 ML VIAL IVPB SCH (11:30)
[2021-07-31 12:41] LABS: HIV INTERPRETATION NEGATIVE (NEGATIVE)
[2021-07-31] MEDS: INSULIN SLIDING SCALE (NOVOLOG) 1 VIAL SQ SCH ×3 (12:41→22:03)
[2021-07-31] MEDS: AMINO ACIDS 4.25%/D5W 2,000 ML IV SCH (15:23)
[2021-07-31 16:37] VITALS: BMI 18.7
[2021-07-31] MEDS ORDERED: VANCOMYCIN 1 GRAM (PRE-DOCKED) 1,000 MG/250 ML BAG IVPB SCH (20:00)
[2021-07-31] MEDS ORDERED: VANCOMYCIN 1 GM in D5W (PRE-DOCKED) 1,000 MG/250 ML IVPB SCH (20:00)
[2021-07-31] MEDS: THIAMINE HCL 200 MG/2 ML VIAL IVPB SCH (21:57)
[2021-08-01] MEDS: THIAMINE HCL 200 MG/2 ML VIAL IVPB SCH ×3 (04:19→21:40)
[2021-08-01] MEDS: INSULIN SLIDING SCALE (NOVOLOG) 1 VIAL SQ SCH ×4 (06:12→21:55)
[2021-08-01] MEDS ORDERED: INSULIN (NOVOLOG) ASPART 100 UNITS/ML 10ML VIAL ONE (06:38)
[2021-08-01] MEDS: AMINO ACIDS 4.25%/D5W 2,000 ML IV SCH ×2 (12:34→16:13)
[2021-08-01] MEDS: amLODIPine BESYLATE 10 MG TABLET (FP) PO SCH (15:46)
[2021-08-01 19:55] LABS: URINE BARBITURATES NEGATIVE (NEGATIVE)
[2021-08-01 19:56] LABS: COCAINE, UR NEGATIVE (NEGATIVE); METHADONE, UR NEGATIVE (NEGATIVE); OPIATES, URI NEGATIVE (NEGATIVE); PHENCYCLIDINE,URINE NEGATIVE (NEGATIVE)
[2021-08-01 20:00] LABS: URINE AMPHETAMINES NEGATIVE (NEGATIVE); URINE BENZODIAZEPINES NEGATIVE (NEGATIVE)
[2021-08-02] MEDS: THIAMINE HCL 200 MG/2 ML VIAL IVPB SCH ×3 (04:14→21:40)
[2021-08-02] MEDS: INSULIN SLIDING SCALE (NOVOLOG) 1 VIAL SQ SCH ×4 (06:01→21:40)
[2021-08-02] MEDS ORDERED: INSULIN (LEVEMIR) 100 UNITS/ML UNITS SQ ONE ×2 (06:47→10:39)
[2021-08-02] MEDS ORDERED: INSULIN (NOVOLOG) ASPART 100 UNITS/ML 10ML VIAL ONE ×3 (06:48→21:33)
[2021-08-02] MEDS: amLODIPine BESYLATE 10 MG TABLET (FP) PO SCH (10:24)
[2021-08-02 11:27] LABS: BASO % 0.5 % (0-2.0); HEMATOCRIT 32.9 % (35.4-49); HEMOGLOBIN 10.9 GM/dL (11.7-16.9); LYMPH % 11.5 % (8-40); MCH 30.7 pg (25.7-33.7); MEAN CELL VOLUME 92.9 fl (80-96); MEAN PLT VOLUME 10.1 fl (7.5-11.1); MONO % 6.4 % (3.8-10.2); NEUT % 80.6 % (42.8-82.8); PLATELET COUNT 169 10^3/uL (134-434); RBC 3.54 M/mm3 (4.00-5.60); RDW 15.3 % (11.9-15.9)
[2021-08-02 11:48] LABS: ALBUMIN 3.1 g/dl (3.4-5.0); MAGNESIUM 2.3 mg/dL (1.8-2.4)
[2021-08-02 11:51] LABS: CREATININE 1.3 mg/dL (0.55-1.3); PHOSPHOROUS 2.5 mg/dL (2.5-4.9)
[2021-08-02 11:53] LABS: BILIRUBIN,TOTAL 0.5 mg/dL (0.2-1)
[2021-08-02] MEDS: AMINO ACIDS 4.25%/D5W 2,000 ML IV SCH (12:48)
[2021-08-02] MEDS: AMINO ACIDS 4.25%/D5W 1,000 ML IV SCH (18:36)
[2021-08-03] MEDS: THIAMINE HCL 200 MG/2 ML VIAL IVPB SCH ×2 (05:20→13:49)
[2021-08-03] MEDS: AMINO ACIDS 4.25%/D5W 1,000 ML IV SCH (05:29)
[2021-08-03] MEDS: INSULIN SLIDING SCALE (NOVOLOG) 1 VIAL SQ SCH ×2 (06:08→11:46)
[2021-08-03] MEDS ORDERED: ENOXAPARIN NA (PORCINE) 40 MG/0.4 ML DISP.SYRIN SQ SCH (10:00)
[2021-08-03] MEDS: amLODIPine BESYLATE 10 MG TABLET (FP) PO SCH (10:10)
[2021-08-03 12:57] LABS: BASO % 0.3 % (0-2.0); EOS % 1.7 % (0-4.5); HEMATOCRIT 33.5 % (35.4-49); HEMOGLOBIN 10.8 GM/dL (11.7-16.9); LYMPH % 16.8 % (8-40); MCH 30.5 pg (25.7-33.7); MCHC 32.2 g/dl (32.0-35.9); MEAN CELL VOLUME 94.6 fl (80-96); MEAN PLT VOLUME 10.9 fl (7.5-11.1); NEUT % 73.2 % (42.8-82.8); PLATELET COUNT 183 10^3/uL (134-434); RBC 3.54 M/mm3 (4.00-5.60); RDW 15.3 % (11.9-15.9)
[2021-08-03 13:16] LABS: ALBUMIN 3.1 g/dl (3.4-5.0); BLOOD UREA NITROGEN 65.7 mg/dL (7-18); CALCIUM 8.3 mg/dL (8.5-10.1); MAGNESIUM 2.4 mg/dL (1.8-2.4)
[2021-08-03 13:19] LABS: CREATININE 1.4 mg/dL (0.55-1.3)
[2021-08-03 13:21] LABS: BILIRUBIN,TOTAL 0.3 mg/dL (0.2-1); PHOSPHOROUS 2.7 mg/dL (2.5-4.9)
[2021-08-03 15:19] VITALS: BP 111/70; PULSE 82; TEMP 98
== END 2021-08-03 18:19 | disposition home or self-care (01) | DRG 420 ==
LOC: JER 14:00 → JERBED 16:13 → J8W 07-31 02:42
PROVIDERS: ADMIT Internal Medicine; ATTEND Internal Medicine
DX: E11.649 Type 2 diabetes mellitus with hypoglycemia without coma (principal); Z79.4 Long term (current) use of insulin; Z89.511 Acquired absence of right leg below knee; N17.9 Acute kidney failure, unspecified; G93.41 Metabolic encephalopathy; I12.9 Hypertensive chronic kidney disease with stage 1 through stage 4 chronic kidney disease, or unspecified chronic kidney disease; E11.22 Type 2 diabetes mellitus with diabetic chronic kidney disease; N18.9 Chronic kidney disease, unspecified
CPT/HCPCS: 36415; 70450-TC; 71045-TC-FY; 76775-TC; 80053; 80307; 81003; 82140; 82550; 82553; 82607; 82746; 82803; 82962; 83036; 83605; 83735; 84100; 84443; 84478; 84484; 85025; 85027; 85610; 85730; 86780; 87040; 87086; 87389; 93005; 93010; 97116-GP; 97162-GP; 99285-25; C9803; J1644; U0003; U0005